=== PATIENT | male | born 1955 | race Caucasian/White ===

== ENCOUNTER 2023-08-27 16:33 | Inpatient (IN) | payer MEDICARE, OTHER ==
[~2023-08-27] VITALS: Ht 170.2 cm; Wt 74.8 kg
[2023-08-27 18:03] LABS: BASOPHILS % 0.8 % (0.0-2.0); EOSINOPHILS % 1.3 % (0.0-5.0); HEMATOCRIT. 40.7 % (42.0-52.0); HEMOGLOBIN. 13.7 g/dL (14.0-18.0); LYMPHOCYTES % 14.8 % (20.0-50.0); MEAN CORPUSCULAR HEMOGLOBIN 28.7 pg (28.0-32.0); MEAN CORPUSCULAR HGB CONC 33.6 g/dL (31.0-37.0); MEAN CORPUSCULAR VOLUME 85.4 fL (80.0-94.0); MEAN PLATELET VOLUME 9.7 fl (7.4-10.4); MONOCYTES % 8.7 % (2.0-8.0); NEUTROPHILS % 74.4 % (40.0-76.0); PLATELET 229 x1000/uL (130-400); RED BLOOD CELL COUNT 4.77 mill/uL (4.7-6.1); RED CELL DISTRIBUTION WIDTH 13.6 % (11.6-14.6); WHITE BLOOD COUNT 9.4 x1000/uL (4.5-11.0)
[2023-08-27] MEDS: CEFTRIAXONE 1GM/50ML 50 ML IV ONE (18:36)
[2023-08-27] MEDS: SODIUM CHLORIDE 0.9% 1,000 ML IV ONE (18:36)
[2023-08-27 19:27] LABS: CHLORIDE 92 mEq/L (98-107); POTASSIUM 4.4 mEq/L (3.5-5.1); SODIUM 129 mEq/L (136-145)
[2023-08-27 19:28] LABS: CARBON DIOXIDE 30 mEq/L (21-32)
[2023-08-27 19:29] LABS: CALCIUM 10.3 mg/dL (8.7-10.4)
[2023-08-27 19:31] LABS: PROTHROMBIN TIME 10.8 sec (9.6-11.0)
[2023-08-27 19:33] LABS: CREATININE 1.7 mg/dL (0.6-1.3)
[2023-08-27 19:34] LABS: TROPONIN I HIGH SENSITIVITY 53 ng/L (3.0-53); UREA NITROGEN BLOOD 24 mg/dL (9-23)
[2023-08-27 19:35] LABS: ALANINE AMINOTRANSFERASE 14 IU/L (10-49); ALBUMIN 4.2 g/dL (3.2-4.8); ASPARTATE AMINOTRANSFERASE 16 IU/L (<34)
[2023-08-27 19:36] LABS: BILIRUBIN TOTAL 0.7 mg/dL (0.1-1.0); PROTEIN TOTAL 7.3 g/dL (6.0-8.3)
[2023-08-27] MEDS: VANCOMYCIN 1G PREMIX 200 ML IV SCH (19:48)
[2023-08-27 20:10] LABS: CLARITY URINE CLEAR (CLEAR); COLOR URINE YELLOW (YELLOW); GLUCOSE URINE 3+ (NEGATIVE); KETONES URINE 1+ (NEGATIVE); LEUKOCYTE ESTERASE URINE NEGATIVE (NEGATIVE); NITRITE URINE NEGATIVE (NEGATIVE); OCCULT BLOOD URINE NEGATIVE (NEGATIVE); PH URINE 5.5 (4.5-8.0); PROTEIN URINE 1+ (NEGATIVE); SPECIFIC GRAVITY URINE 1.026 (1.005-1.030); UROBILINOGEN URINE 0.2 E.U./dL (0.2-1.0)
[2023-08-27 20:16] LABS: ETHANOL BLOOD < 10 mg/dL (<10); GLUCOSE 440 mg/dL (70-105)
[2023-08-27 20:24] LABS: *AMPHETAMINES SCREEN URINE NEGATIVE (NEGATIVE)
[2023-08-27 20:25] LABS: *BARBITURATES SCREEN URINE NEGATIVE (NEGATIVE); *BENZODIAZEPINES SCREEN URINE NEGATIVE (NEGATIVE); *COCAINE SCREEN URINE NEGATIVE (NEGATIVE); CANNABINOID URINE SCREEN NEGATIVE (NEGATIVE); ECSTASY MDMA SCREEN URINE NEGATIVE (NEGATIVE); METHADONE URINE SCREEN NEGATIVE (NEGATIVE); OPIATES URINE SCREEN PRESUMPTIVE POSITIVE (NEGATIVE); PHENCYCLIDINE URINE SCREEN NEGATIVE (NEGATIVE)
[2023-08-27 20:30] LABS: BETA HYDROXYBUTYRATE 1.5 mMol/L (0.0-0.3)
[2023-08-27 20:41] LABS: BACTERIA URINE NONE SEEN; RBC URINE 0-2 /hpf (0-2); SQUAMOUS EPITHELIAL CELL URINE NONE SEEN /lpf (RARE/1+); WBC URINE NONE SEEN /hpf (0-2)
[2023-08-27 22:00] LABS: TROPONIN I HIGH SENSITIVITY 57 ng/L (3.0-53)
[2023-08-27] MEDS: INSULIN REGULAR (HUMULIN R) 300UNITS/3ML VIAL SUBCUT ONE (22:03)
[2023-08-27] MEDS ORDERED: CEFAZOLIN 500 MG in DEXTROSE 5% WATER 50 ML IV SCH (23:45)
[2023-08-27] MEDS ORDERED: ZOLPIDEM TARTRATE 5MG TABLET PO PRN (23:45)
[2023-08-27] MEDS ORDERED: ACETAMINOPHEN 325MG TABLET PO PRN ×2 (23:45)
[2023-08-27] MEDS ORDERED: DIPHENHYDRAMINE 50MG/ML VIAL IV PRN (23:45)
[2023-08-27] MEDS ORDERED: ONDANSETRON HCL 4MG/2ML INJ IV PRN (23:45)
[2023-08-27] MEDS ORDERED: DEXTROSE 50% WATER 50ML SYRINGE IV PRN (23:45)
[2023-08-28] VITALS (7 sets, daily range): BP systolic 118–144; BP diastolic 64–86; PULSE 80–97; RESP 16–20; TEMP 97.6–98.2
[2023-08-28] MEDS: SODIUM CHLORIDE 0.9% 1,000 ML IV SCH (00:20)
[2023-08-28] MEDS: INSULIN GLARGINE 100 UNITS/ML SUBCUT SCH (00:24)
[2023-08-28] MEDS ORDERED: VANCOMYCIN 1G PREMIX 200 ML IV SCH (03:30)
[2023-08-28] MEDS ORDERED: CEFAZOLIN 1000MG PREMIX 50ML IV SCH (06:00)
[2023-08-28] MEDS: BLOOD SUGAR DIAGNOSTIC STRIP TEST SCH (06:43)
[2023-08-28] MEDS: INSULIN LISPRO 100 UNITS/ML SUBCUT SCH (06:44)
[2023-08-28] MEDS: AMLODIPINE 5MG TABLET PO SCH (08:39)
[2023-08-28] MEDS: VANCOMYCIN 1GM/200ML PMX (BAXTER) IV NR (16:50)
[2023-08-28] MEDS ORDERED: VANCOMYCIN 1GM/200ML PMX (BAXTER) IV SCH (17:00)
[2023-08-29] VITALS: BP 107/53; PULSE 81; RESP 17; TEMP 97.6
[2023-08-29 04:00] VITALS: BP 163/86; PULSE 65; RESP 18; TEMP 97.8
[2023-08-29 05:36] LABS: CARBON DIOXIDE 26 mEq/L (21-32); CHLORIDE 103 mEq/L (98-107); SODIUM 140 mEq/L (136-145)
[2023-08-29 05:37] LABS: CALCIUM 8.9 mg/dL (8.7-10.4)
[2023-08-29 05:42] LABS: GLUCOSE 81 mg/dL (70-105); UREA NITROGEN BLOOD 15 mg/dL (9-23)
[2023-08-29 06:26] LABS: POTASSIUM 2.8 mEq/L (3.5-5.1)
[2023-08-29] MEDS: LINAGLIPTIN 5MG TABLET PO SCH (08:15)
[2023-08-29] MEDS: POTASSIUM CHLORIDE 20MEQ TABLET SR PO SCH (09:40)
[2023-08-29] MEDS: VANCOMYCIN 1G PREMIX 200 ML IV SCH (12:08)
[2023-08-29] MEDS: CLONIDINE 0.1MG TABLET PO PRN (12:22)
[2023-08-29 16:00] VITALS: BP_SYST 171; PULSE 96; RESP 20; TEMP 97.6
[2023-08-29 20:00] VITALS: BP 131/80; PULSE 73; RESP 18; TEMP 98
[2023-08-29 21:00] VITALS: BP 126/79; PULSE 71; RESP 20; TEMP 96.6
[2023-08-30 04:00] VITALS: BP 119/73; PULSE 72; RESP 20; TEMP 98.4
[2023-08-30 06:56] LABS: CHLORIDE 107 mEq/L (98-107); POTASSIUM 3.9 mEq/L (3.5-5.1); SODIUM 138 mEq/L (136-145)
[2023-08-30 06:57] LABS: CALCIUM 8.6 mg/dL (8.7-10.4); CARBON DIOXIDE 25 mEq/L (21-32)
[2023-08-30 07:02] LABS: GLUCOSE 82 mg/dL (70-105); UREA NITROGEN BLOOD 11 mg/dL (9-23)
[2023-08-30 07:18] LABS: BASOPHILS % 1.1 % (0.0-2.0); EOSINOPHILS % 7.9 % (0.0-5.0); HEMATOCRIT. 37.3 % (42.0-52.0); HEMOGLOBIN. 12.2 g/dL (14.0-18.0); LYMPHOCYTES % 32.2 % (20.0-50.0); MEAN CORPUSCULAR HEMOGLOBIN 27.8 pg (28.0-32.0); MEAN CORPUSCULAR HGB CONC 32.6 g/dL (31.0-37.0); MEAN CORPUSCULAR VOLUME 85.1 fL (80.0-94.0); MEAN PLATELET VOLUME 9.5 fl (7.4-10.4); MONOCYTES % 11.9 % (2.0-8.0); NEUTROPHILS % 46.9 % (40.0-76.0); PLATELET 198 x1000/uL (130-400); RED BLOOD CELL COUNT 4.39 mill/uL (4.7-6.1); RED CELL DISTRIBUTION WIDTH 13.8 % (11.6-14.6)
[2023-08-30 08:00] VITALS: BP 147/87; PULSE 82; RESP 18; TEMP 97.9
[2023-08-30] MEDS ORDERED: POLYMYXIN B SULFATE 500000 UNITS/VIAL ONE (08:14)
[2023-08-30] MEDS ORDERED: BUPIVACAINE HCL/PF 0.5% (5MG/ML) 10ML ONE (08:15)
[2023-08-30 12:00] VITALS: BP 161/93; PULSE 87; RESP 19; TEMP 98.9
[2023-08-30] MEDS: VANCOMYCIN 500MG PREMIX 100 ML IV SCH (12:44)
[2023-08-30] MEDS ORDERED: LIDOCAINE HCL 1% 10 MG/ML 10ML VIAL ONE (13:53)
[2023-08-30 16:00] VITALS: BP 147/82; PULSE 88; RESP 19; TEMP 98.4
[2023-08-30] MEDS: METRONIDAZOLE 500MG TABLET PO SCH (17:17)
[2023-08-30] MEDS: CEFTRIAXONE 2GM/50ML 50 ML IV SCH (17:27)
[2023-08-30 20:00] VITALS: BP 133/81; PULSE 87; RESP 19; TEMP 97.8
[2023-08-30] MEDS: INSULIN GLARGINE 100 UNITS/ML SUBCUT SCH (22:24)
[2023-08-31] VITALS: BP 121/67; PULSE 82; RESP 20; TEMP 97.4
[2023-08-31 04:00] VITALS: BP 138/76; PULSE 78; RESP 18; TEMP 98.3
[2023-08-31 08:00] VITALS: BP 143/90; PULSE 78; RESP 18; TEMP 97.1
[2023-08-31 08:40] LABS: CHLORIDE 105 mEq/L (98-107); POTASSIUM 3.8 mEq/L (3.5-5.1); SODIUM 137 mEq/L (136-145)
[2023-08-31 08:41] LABS: CALCIUM 8.9 mg/dL (8.7-10.4); CARBON DIOXIDE 25 mEq/L (21-32); HEMATOCRIT. 37.1 % (42.0-52.0); MEAN CORPUSCULAR HEMOGLOBIN 27.5 pg (28.0-32.0); MEAN CORPUSCULAR HGB CONC 32.2 g/dL (31.0-37.0); MEAN CORPUSCULAR VOLUME 85.4 fL (80.0-94.0); RED BLOOD CELL COUNT 4.35 mill/uL (4.7-6.1); RED CELL DISTRIBUTION WIDTH 13.6 % (11.6-14.6)
[2023-08-31 08:43] LABS: DIFFERENTIAL COMMENT 1
[2023-08-31 08:46] LABS: CREATININE 1.1 mg/dL (0.6-1.3); GLUCOSE 93 mg/dL (70-105); UREA NITROGEN BLOOD 11 mg/dL (9-23)
[2023-08-31 12:00] VITALS: BP 153/96; PULSE 91; RESP 18; TEMP 97.3
[2023-08-31 12:09] LABS: PLATELET ESTIMATE NORMAL
[2023-08-31] MEDS ORDERED: VANCOMYCIN 1.5GM/250ML 250 ML IV SCH (15:00)
[2023-08-31 16:00] VITALS: BP 142/83; PULSE 84; RESP 18; TEMP 97.1
[2023-08-31 20:00] VITALS: BP 143/80; PULSE 87; RESP 17; TEMP 97.7
[2023-09-01] VITALS (7 sets, daily range): BP systolic 130–174; BP diastolic 79–100; PULSE 61–104; RESP 16–19; TEMP 97.5–99.5
[2023-09-01] MEDS ORDERED: BUPIVACAINE HCL/PF 0.5% (5MG/ML) 10ML ONE (06:38)
[2023-09-01] MEDS ORDERED: POLYMYXIN B SULFATE 500000 UNITS/VIAL ONE (06:38)
[2023-09-01] MEDS ORDERED: VANCOMYCIN HCL 1 GM/VIAL ONE (06:38)
[2023-09-01] MEDS ORDERED: LIDOCAINE HCL 1% 10 MG/ML 10ML VIAL ONE ×2 (06:39→07:13)
[2023-09-01] MEDS ORDERED: PROPOFOL 200MG/20ML VIAL IV ONE ×2 (07:08→08:39)
[2023-09-01] MEDS ORDERED: MIDAZOLAM HCL 2 MG/2 ML VIAL ONE (07:09)
[2023-09-01] MEDS ORDERED: FENTANYL CITRATE/PF 50MCG/ML 2ML VIAL ONE (07:09)
[2023-09-01] MEDS ORDERED: HYDROCODONE/ACETAMINOPHEN 5/325MG TABLET PO PRN (07:30)
[2023-09-01] MEDS ORDERED: NALOXONE HCL 0.4MG/ML VIAL IV PRN (07:45)
[2023-09-01] MEDS ORDERED: HYDROMORPHONE HCL/PF 2MG/ML CPJ IV PRN (08:00)
[2023-09-01] MEDS ORDERED: ONDANSETRON HCL 4MG/2ML INJ IV PRN (08:00)
[2023-09-01] MEDS ORDERED: FENTANYL CITRATE/PF 50MCG/ML 2ML VIAL IV PRN (08:00)
[2023-09-01] MEDS ORDERED: ONDANSETRON HCL 4MG/2ML INJ ONE (08:39)
[2023-09-01] MEDS ORDERED: CEFAZOLIN SODIUM 1000MG/VIAL ONE (08:40)
[2023-09-01] MEDS: GABAPENTIN 100MG CAPSULE PO SCH (13:16)
[2023-09-01] MEDS: HYDROCODONE/ACETAMINOPHEN 10/325MG TABLET PO PRN (14:52)
[2023-09-02] VITALS: BP 111/71; PULSE 77; RESP 18; TEMP 97.7
[2023-09-02 04:00] VITALS: BP 144/92; PULSE 93; RESP 18; TEMP 97.7
[2023-09-02 08:00] VITALS: BP 138/85; PULSE 93; RESP 18; TEMP 97.6
[2023-09-02 12:00] VITALS: BP 151/82; PULSE 98; RESP 18; TEMP 96.9
[2023-09-02 15:09] VITALS: BP 151/82; PULSE 98; TEMP 97.6; O2SAT 98
== END 2023-09-02 16:00 | disposition home health service (06) | DRG 629 ==
LOC: ER 16:33 → 8WST 20:54 → EDBEDREQ 20:55 → 6EST 08-29 20:53
PROVIDERS: ADMIT Internal Medicine; ATTEND Internal Medicine
PROC: 02HV33Z Insertion of Infusion Device into Superior Vena Cava, Percutaneous Approach (ICD-10-PCS; 2023-08-30)
PROC: 0QBP0ZX Excision of Left Metatarsal, Open Approach, Diagnostic (ICD-10-PCS; principal; 2023-09-01)
DX: E11.69 Type 2 diabetes mellitus with other specified complication (principal); L02.612 Cutaneous abscess of left foot; L03.116 Cellulitis of left lower limb; M86.172 Other acute osteomyelitis, left ankle and foot; N17.9 Acute kidney failure, unspecified; E11.621 Type 2 diabetes mellitus with foot ulcer; L97.529 Non-pressure chronic ulcer of other part of left foot with unspecified severity; E11.65 Type 2 diabetes mellitus with hyperglycemia; I10 Essential (primary) hypertension; Z79.899 Other long term (current) drug therapy; Z79.84 Long term (current) use of oral hypoglycemic drugs
CPT/HCPCS: 36415; 36573; 71045; 73630; 73721; 80048; 80053; 80202; 80305; 80320; 81003; 82010; 82803; 82962; 83036; 84484; 85025; 85651; 87070; 87075; 87077; 88304; 88311; 93005; 97116; 97162; 99285; C1725; J0690; J0696; J1815; J2250; J2405; J2704; J3010; J3370; J3490; J7030; G0480